=== PATIENT | male | born 1950 | race Caucasian/White ===

== ENCOUNTER 2016-12-10 15:02 | Emergency (ER) | payer MEDICARE, BC ==
[~2016-12-10] VITALS: Ht 167.6 cm; Wt 96.0 kg
[2016-12-10 15:16] VITALS: Ht 167.6 cm; Wt 96.0 kg
[2016-12-10] MEDS ORDERED: IBUPROFEN 800 MG TAB PO ONE (16:00)
--- NOTE | 2016-12-10 16:26 | RADRPT ---
PROCEDURE: XR Ankle. CLINICAL INDICATION: Left ankle pain, trauma TECHNIQUE: 3 views of the left ankle were performed. COMPARISON: None. FINDINGS: There is a small bone fragment the tip of the distal fibula with moderate lateral soft tissue swelli ng, likely representing a small avulsion fracture. The talar dome is normal. No other fractures ar e identified. There is a moderate sized plantar calcaneal enthesophyte. IMPRESSION: Small acute appearing avulsion fracture at the tip of the distal fibula with moderate lateral soft t issue swelling. RPTAT: UU .Parish Elias MD, MD Date Time Electronically viewed and signed by .Parish Elias MD, on 12/10/2016 16:26 .K/
--- NOTE | 2016-12-10 16:39 | ERD ---
ER Documentation Chief Complaint Date/Time DATE: 12/10/16 TIME: 16:36 Chief Complaint Pt with L ankle pain, weight bearing, twisted today. HPI This is a 66-year-old male who presents to the emergency department today complaining of left ankle pain that started today. Patient states he was playing golf when he was having in his left foot out of the golf cart and got caught on the concrete. States he had immediate pain and swelling and hurt it pop. Denies any previous trauma to this ankle. Denies any fevers or chills. ROS All systems reviewed and are negative except as per history of present illness. Medications Home Meds Active Scripts Naproxen* (Naprosyn*) 500 Mg Tablet, 500 MG PO BID Y for PAIN AND/OR INFLAMMATION, #30 TAB Prov:SHAJI DAN PA-C 12/10/16 Hydrocodone/Acetaminophen (Tate 10-325 Tablet) 1 Each Tablet, 1 TAB PO Q6H Y for PAIN, #10 TAB Prov:SHAJI DAN PA-C 12/10/16 Physical Exam Vitals Vital Signs Date Time Temp Pulse Resp B/P Pulse Ox O2 Delivery O2 Flow Rate FiO2 12/10/16 15:16 98.3 77 18 155/83 96 Physical Exam Const: Pleasant, no acute distress Head: Atraumatic Eyes: Normal Conjunctiva ENT: Normal External Ears, Nose and Mouth. Neck: Full range of motion..~ No meningismus. Resp: Clear to auscultation bilaterally Cardio: Regular rate and rhythm, no murmurs Abd: Soft, non tender, non distended. Normal bowel sounds Skin: No petechiae or rashes Back: No midline or flank tenderness MSk: Left ankle with no obvious deformity. No Ecchymosis. Effusion lateral ankle. Full active range of motion with pain. Tenderness to palpation distal fibula. Nontender to palpation proximal fibula. Nontender to palpation medial malleolus, navicular, base of the fifth metatarsal. Neur: Awake and alert Psych: Normal Mood and Affect Results 24 hrs Current Medications Medications (Trade) Dose Ordered Sig/Amy Route PRN Reason Start Time Stop Time Status Last Admin Dose Admin Ibuprofen (Motrin) 800 mg ONCE ONCE PO 12/10/16 16:00 12/10/16 16:04 DC 12/10/16 16:05 DIAGNOSTIC IMAGING REPORT Patient: SEBASTIAN BERGMAN : 1950 Age: 66 Sex: M MR #: [id number] DOS: 12/10/16 0000 Ordering MD: SHAJI DAN PA-C Location: [facility] Room/Bed: PROCEDURE: XR Ankle. CLINICAL INDICATION: Left ankle pain, trauma TECHNIQUE: 3 views of the left ankle were performed. COMPARISON: None. FINDINGS: There is a small bone fragment the tip of the distal fibula with moderate lateral soft tissue swelling, likely representing a small avulsion fracture. The talar dome is normal. No other fractures are identified. There is a moderate sized plantar calcaneal enthesophyte. IMPRESSION: Small acute appearing avulsion fracture at the tip of the distal fibula with moderate lateral soft tissue swelling. RPTAT: UU .Parish Elias MD MD Date Time Electronically viewed and signed by .Parish Elias MD, MD on 12/10/2016 16: 26 .K/ CC: SHAJI DAN PA-C Procedures/MDM This 66-year-old male who presents to emergency department today complaining of left pain after sustaining an injury riding in a golf cart earlier today. Given that there was some swelling and tenderness palpation over the lateral malleolus and did obtain images of the ankle. Per the radiology report there is a small acute-appearing avulsion fracture at the tip of the distal fibula with moderate lateral soft tissue swelling. Talar dome is normal. There is no other fracture identified. Patient avulsion fracture likely the cause of his swelling and pain. Patient was given Motrin here in the emergency department. He will be placed in a splint and given crutches to help ambulate. She was distal neurovascularly intact pre-and post-splint application. Patient does have primary care and orthopedic follow-up. 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 Patient will be given a prescription for Naprosyn and an Tate. At this time the patient is stable for discharge and outpatient management. Patient should follow up with their PCP in the next 1-2 days. They may return to the emergency department sooner for any persistent or worsening of symptoms. Patient understood and agreed with the plan. Departure Diagnosis: Primary Impression: Ankle fracture Encounter type: initial encounter Fracture type: closed Laterality: left Qualified Code: S82.892A - Ankle fracture, left, closed, initial encounter Condition: Fair SHAJI DAN PA-C Dec 10, 2016 16:39
[2016-12-10] MEDS ORDERED: HYDR-902 PO (16:48)
[2016-12-10] MEDS ORDERED: NAPR-260 PO (16:49)
== END 2016-12-10 17:07 | disposition home or self-care (01) ==
LOC: FTE 15:02
DX: S82.892A Other fracture of left lower leg, initial encounter for closed fracture (principal); X50.1XXA Overexertion from prolonged static or awkward postures, initial encounter; Y92.9 Unspecified place or not applicable
CPT/HCPCS: 73610